=== PATIENT | male | born 1965 | race Caucasian/White ===

== ENCOUNTER 2016-08-09 07:56 | Day surgery (SDC) | payer BC ==
[~2016-08-09] VITALS: Ht 177.8 cm; Wt 91.4 kg
[~2016-08-09 07:56] MED LIST: CEPHALEXIN500 M1 PO; PERCOCET 325 MG1 TA2 PO; ZESTRIL 20MG TA20 MG PO
[2016-08-09 08:47] VITALS: BP 107/76; PULSE 87; TEMP 98
[2016-08-09 10:15] VITALS: BP 85/60; PULSE 72; TEMP 97.4
[2016-08-09 10:30] VITALS: BP 94/65; PULSE 73
== END 2016-08-09 10:50 | disposition home or self-care (01) ==
LOC: SDCO 07:56
DX: Z12.11 Encounter for screening for malignant neoplasm of colon (principal); K63.5 Polyp of colon; K62.1 Rectal polyp; I10 Essential (primary) hypertension; Z80.0 Family history of malignant neoplasm of digestive organs
CPT/HCPCS: J2250; J3010; J7030